=== PATIENT | male | born 1980 | race Caucasian/White ===

== ENCOUNTER 2018-06-05 10:30 | Emergency (ER) | payer BC ==
--- NOTE | 2018-06-05 10:53 | EDM.PDOC ---
ED HPI GENERAL MEDICAL PROBLEM - General Chief Complaint: ENT Problem Stated Complaint: MOUTH PAINN Time Seen by Provider: 06/05/18 10:48 Source of Information: Reports: Patient, RN, RN Notes Reviewed History Limitations: Reports: No Limitations - History of Present Illness INITIAL COMMENTS - FREE TEXT/NARRATIVE: Patient presents to the ED at [facility] complaining of left lower jaw pain , dental pain, and sneezing. He states his symptoms started a few days ago. He did call his dentist today, but he is not able to get in until Saturday. Onset: Gradual - Related Data Allergies Allergy/AdvReac Type Severity Reaction Status Date / Time No Known Allergies Allergy Verified 06/05/18 10:45 Home Meds: Home Meds Clindamycin HCl 300 mg PO TID 10 Days #30 capsule 06/05/18 [Rx] Past Medical History - Past Health History Medical/Surgical History: Denies Medical/Surgical History Social & Family History - Tobacco Use Smoking Status *Q: Unknown Ever Smoked ED ROS GENERAL - Review of Systems Review Of Systems: See Below Constitutional: Denies: Fever, Chills HEENT: Reports: Dental Pain, Rhinitis Respiratory: Denies: Shortness of Breath, Cough Cardiovascular: Denies: Chest Pain, Palpitations Skin: Reports: No Symptoms Neurological: Reports: No Symptoms ED EXAM, GENERAL - Physical Exam Exam: See Below Exam Limited By: No Limitations General Appearance: Alert, No Apparent Distress Throat/Mouth: Other (dental abscess around molar #12; no gingivits or periodontal disease; has a few missing teeth) Neck: Supple. No: Lymphadenopathy (L), Lymphadenopathy (R) Respiratory/Chest: No Respiratory Distress, Lungs Clear, Normal Breath Sounds Neurological: Alert, Oriented Skin Exam: Warm, Dry, Intact, Normal Color Course - Vital Signs Last Recorded V/S: Last Vital Signs Temp 37.1 C 06/05/18 10:35 Pulse 80 06/05/18 10:35 Resp 16 06/05/18 10:35 BP 115/88 06/05/18 10:35 Pulse Ox 100 06/05/18 10:35 Departure - Departure Time of Disposition: 10:53 Disposition: Home, Self-Care 01 Condition: Good Clinical Impression: Dental abscess - Discharge Information *PRESCRIPTION DRUG MONITORING PROGRAM REVIEWED*: Not Applicable *COPY OF PRESCRIPTION DRUG MONITORING REPORT IN PATIENT LEANNA: Not Applicable Prescriptions: Clindamycin HCl 300 mg PO TID 10 Days #30 capsule Instructions: Dental Abscess Additional Instructions: 1. Stay well hydrated and rest 2. Take antibiotics for full coarse, even if you are feeling better 3. Do warm salt water gargles several times a day 4. May use an antiseptic mouth wash 5. Alternate Tylenol/Advil as needed 6. Keep appointment with Dentist for this Saturday 7. Call with any questions or concerns - Problem List Review Problem List Initiated/Reviewed/Updated: Yes - Assessment/Plan Assessment:: Dental Abscess Molar #12 Plan: Finding discussed with patient. Will start abx therapy for dental abscess. SE discussed. Do full coarse even if you are feeling better. LOTS of water.
== END 2018-06-05 11:05 | disposition home or self-care (01) ==
LOC: VM.ED 10:30
DX: K04.7 Periapical abscess without sinus (principal)
CPT/HCPCS: 99282

== ENCOUNTER 2018-06-05 20:12 | Emergency (ER) | payer BC ==
[2018-06-05] MEDS ORDERED: methylPREDNISolone Sodium Succinate 125 MG/2 ML SDV IM ONE (20:33)
--- NOTE | 2018-06-05 20:33 | EDM.PDOC ---
ED HPI GENERAL MEDICAL PROBLEM - General Chief Complaint: ENT Problem Stated Complaint: dental pain/abscess swelling Time Seen by Provider: 06/05/18 20:22 Source of Information: Reports: Patient, Old Records, RN, RN Notes Reviewed History Limitations: Reports: No Limitations - History of Present Illness INITIAL COMMENTS - FREE TEXT/NARRATIVE: Patient presents to the ED again with worsening tooth pain. Patient was seen earlier today in this ER and diagnosed with dental abscess. He has started taking his abx as directed. He is, however, no taking enough OTC pain medication. Patient has an appointment with a dentist this Saturday, but states he is going to try and get in tomorrow. No other concerns. Onset: Gradual Left Lower Tooth/Teeth Pain Score (Numeric/FACES): 7 - Related Data Allergies Allergy/AdvReac Type Severity Reaction Status Date / Time No Known Allergies Allergy Verified 06/05/18 20:16 Home Meds: Home Meds Clindamycin HCl 300 mg PO TID 10 Days #30 capsule 06/05/18 [Rx] methylPREDNISolone [Medrol] 4 mg PO ASDIRECTED #1 dosepk 06/05/18 [Rx] Past Medical History - Past Health History Medical/Surgical History: Denies Medical/Surgical History Social & Family History - Tobacco Use Smoking Status *Q: Current Every Day Smoker Years of Tobacco use: 16 Packs/Tins Daily: 0.7 ED ROS ENT - Review of Systems Review Of Systems: See Below Constitutional: Denies: Fever, Chills, Weakness HEENT: Reports: Dental Pain Respiratory: Denies: Shortness of Breath, Cough Cardiovascular: Denies: Chest Pain, Palpitations Skin: Reports: No Symptoms Neurological: Reports: No Symptoms. Denies: Dizziness, Headache ED EXAM, ENT - Physical Exam Exam: See Below Exam Limited By: No Limitations General Appearance: Alert, No Apparent Distress Mouth/Throat: Dental Abcess, Dental Pain, Dental Tenderness, Gum Swelling. No: Dental Trauma Neck: Supple. No: Lymphadenopathy (L), Lymphadenopathy (R) Respiratory/Chest: No Respiratory Distress, Lungs Clear, Normal Breath Sounds Cardiovascular: Normal Peripheral Pulses, Regular Rate, Rhythm Neurological: Alert, Oriented Skin: Warm, Dry, Intact, Normal Color Course - Vital Signs Last Recorded V/S: Last Vital Signs Temp 36.6 C 06/05/18 20:17 Pulse 62 06/05/18 20:17 Resp 16 06/05/18 20:17 BP 129/84 06/05/18 20:17 Pulse Ox 98 06/05/18 20:17 Departure - Departure Time of Disposition: 20:38 Disposition: Home, Self-Care 01 Condition: Good Clinical Impression: Dental abscess, Pain, dental - Discharge Information *PRESCRIPTION DRUG MONITORING PROGRAM REVIEWED*: Not Applicable *COPY OF PRESCRIPTION DRUG MONITORING REPORT IN PATIENT LEANNA: Not Applicable Prescriptions: methylPREDNISolone [Medrol] 4 mg PO ASDIRECTED #1 dosepk Instructions: Dental Abscess Additional Instructions: 1. Stay well hydrated and rest 2. Alternate Tylenol/Advil as discussed 3. Continue with Clindamycin 4. Do warm salt water gargles to help with swelling and pain 5. Use Antiseptic mouth wash 6. Apply a heating pad to left side of face to help with pain and swelling 7. See your dentist as scheduled 8. Call us with any questions or concerns - Problem List Review Problem List Initiated/Reviewed/Updated: Yes - Assessment/Plan Assessment:: Dental abscess Dental pain Plan: Thoroughly discussed with patient how to alternate Tylenol/Advil for optimal pain relief. Discussed patient can alternate both medications every 2 hours for the short term until he is seen by his dentist. Patient verbalized understanding. Will give IM Solumedrol for swelling and start a Medrol Dos Bert tomorrow.
== END 2018-06-05 20:47 | disposition home or self-care (01) ==
LOC: VM.ED 20:12
DX: K04.7 Periapical abscess without sinus (principal); F17.210 Nicotine dependence, cigarettes, uncomplicated
CPT/HCPCS: 96372; 99282; J2930

== ENCOUNTER 2019-05-15 18:36 | Emergency (ER) | payer BC ==
--- NOTE | 2019-05-15 19:55 | EDM.PDOC ---
ED HPI GENERAL MEDICAL PROBLEM - General Chief Complaint: Skin Complaint Stated Complaint: FLUE LIKE SYMPTOMS Time Seen by Provider: 05/15/19 19:15 Source of Information: Reports: Patient History Limitations: Reports: No Limitations - History of Present Illness INITIAL COMMENTS - FREE TEXT/NARRATIVE: Patient reports flu like illness Saturday and Saturday. These have resolved but he went to [facility] with complaints of a bug bite to his left upper thigh. He was given augmentin at that time. He has sporadic red spots generally to his trunk. No itching, burning, no pustules. No fever, no chills. Onset: Gradual Duration: Getting Worse Location: Reports: Generalized - Related Data Allergies Allergy/AdvReac Type Severity Reaction Status Date / Time No Known Allergies Allergy Verified 06/05/18 20:16 Home Meds: Home Meds Clindamycin HCl 300 mg PO TID 10 Days #30 capsule 06/05/18 [Rx] methylPREDNISolone [Medrol] 4 mg PO ASDIRECTED #1 dosepk 06/05/18 [Rx] Past Medical History - Past Health History Medical/Surgical History: Denies Medical/Surgical History ED ROS GENERAL - Review of Systems Review Of Systems: See Below Constitutional: Reports: No Symptoms HEENT: Reports: No Symptoms Respiratory: Reports: No Symptoms Cardiovascular: Reports: No Symptoms Endocrine: Reports: No Symptoms GI/Abdominal: Reports: No Symptoms : Reports: No Symptoms Musculoskeletal: Reports: No Symptoms Skin: Reports: Rash Neurological: Reports: No Symptoms ED EXAM, SKIN/RASH Exam: See Below Exam Limited By: No Limitations General Appearance: Alert, WD/WN, No Apparent Distress Departure - Departure Time of Disposition: 20:01 Disposition: Home, Self-Care 01 Condition: Good Clinical Impression: Rash and nonspecific skin eruption, Pityriasis rosea-like skin eruption - Discharge Information *PRESCRIPTION DRUG MONITORING PROGRAM REVIEWED*: Not Applicable *COPY OF PRESCRIPTION DRUG MONITORING REPORT IN PATIENT LEANNA: Not Applicable Instructions: Rash Referrals: PCP,None [Primary Care Provider] - Forms: ED Department Discharge Additional Instructions: Plan 1. Continue to take the augmentin 2. Take claritin or zyrtec for the rash for the next few days 3. Follow up with [facility] provider that saw you on Saturday or Saturday if this persists 4. May take benadryl at night 25-50mg. May cause drowsiness. 5. Please call or return if you have any further questions or concerns - Problem List & Annotations (1) Rash and nonspecific skin eruption SNOMED Code(s): 004451821 Code(s): R21 - RASH AND OTHER NONSPECIFIC SKIN ERUPTION Status: Acute Priority: Low Current Visit: Yes - Problem List Review Problem List Initiated/Reviewed/Updated: Yes - Assessment/Plan Assessment:: Pityriasis rosea Plan: Plan 1. Continue to take the augmentin 2. Take claritin or zyrtec for the rash for the next few days 3. Follow up with [facility] provider that saw you on Saturday or Saturday if this persists 4. May take benadryl at night 25-50mg. May cause drowsiness. 5. Please call or return if you have any further questions or concerns
== END 2019-05-15 20:02 | disposition home or self-care (01) ==
LOC: VM.ED 18:36
DX: L42 Pityriasis rosea (principal)
CPT/HCPCS: 99282

== ENCOUNTER 2021-10-19 14:43 | Emergency (ER) | payer BC ==
[2021-10-19] MEDS ORDERED: Lidocaine 2% with EPINEPHrine 1:100,000 20 ML MDV INJECT ONE (15:15)
[2021-10-19] MEDS ORDERED: Bupivacaine 0.5% 30 ML SDV INJECT STA (15:15)
[2021-10-19] MEDS ORDERED: Lidocaine 2% with EPINEPHrine 1:100,000 20 ML MDV ONE (15:32)
[2021-10-19] MEDS ORDERED: Amoxicillin 500 MG Cap PO ONE (15:38)
--- NOTE | 2021-10-19 15:38 | EDM.PDOC ---
ED HPI GENERAL MEDICAL PROBLEM - General Chief Complaint: ENT Problem Stated Complaint: ABCESS TOOTH Time Seen by Provider: 10/19/21 15:25 Source of Information: Reports: Patient History Limitations: Reports: No Limitations - History of Present Illness INITIAL COMMENTS - FREE TEXT/NARRATIVE: Patient comes emergency department today with complaints of dental pain. This patient for the past 2 days has had increasing pain in the right lower anterior aspect of his jaw. He has concerns for dental abscess. He has made an appointment with the dentist on Saturday. He has been taking Tylenol ibuprofen without improvement. He denies any fever or chills. No difficulty breathing swallowing. No drooling. Right Lower Tooth/Teeth Pain Score (Numeric/FACES): 10 - Related Data Allergies Allergy/AdvReac Type Severity Reaction Status Date / Time No Known Allergies Allergy Verified 10/19/21 15:19 Home Meds: Home Meds Amoxicillin 500 mg PO BID #14 capsule 10/19/21 [Rx] Hydrocodone/Acetaminophen [HYDROcodone-Acetaminophen 5-325 MG] 1 each PO TID PRN #10 tab 10/20/21 [Rx] Past Medical History - Past Health History Medical/Surgical History: Denies Medical/Surgical History - Past Surgical History HEENT Surgical History: Reports: Adenoidectomy, Tonsillectomy Social & Family History - Tobacco Use Tobacco Use Status *Q: Unknown Ever Used Tobacco ED ROS ENT - Review of Systems Review Of Systems: Comprehensive ROS is negative, except as noted in HPI. ED EXAM, ENT - Physical Exam Exam: See Below Text/Narrative:: There is no overt facial asymmetry or swelling of the face specifically to the right lower area. Exam Limited By: No Limitations General Appearance: Alert, WD/WN, No Apparent Distress Ears: Normal External Exam, Normal TMs Nose: Normal Inspection Mouth/Throat: Gum Swelling (#27 erythema no abscess). No: Normal Inspection (On tooth #27 there is an artificial cap on there. There is a small amount of irritation just inferior to tooth #27. There is no sign of abscess. On the medial side of this area there is no erythema induration or swelling. Area under the tongue is soft. There is no trismus. There is no overt ab), Hoarse Voice Head: Atraumatic, Normocephalic Neck: Normal Inspection, Supple Respiratory/Chest: No Respiratory Distress, Lungs Clear, Chest Non-Tender Cardiovascular: Normal Peripheral Pulses, Regular Rate, Rhythm Neurological: Alert, Oriented Psychiatric: Normal Affect, Normal Mood Skin: Warm, Dry, Intact, Normal Color, No Rash Course - Vital Signs Last Recorded V/S: Last Vital Signs Temp 98.8 F 10/19/21 15:00 Pulse 63 10/19/21 15:00 Resp 16 10/19/21 15:00 BP 127/79 10/19/21 15:00 Pulse Ox 98 10/19/21 15:00 - Orders/Labs/Meds Meds: Medications Discontinued Medications Generic Name Dose Route Start Last Admin Trade Name Yasmin PRN Reason Stop Dose Admin Amoxicillin 500 mg 10/19/21 15:38 10/19/21 15:46 Amoxicillin 500 Mg Cap PO 10/19/21 15:39 500 mg ONETIME ONE Administration Bupivacaine HCl 30 ml 10/19/21 15:15 10/19/21 15:45 Bupivacaine 0.5% 30 Ml Sdv INJECT 10/19/21 15:16 30 ml NOW STA Administration Lidocaine/Epinephrine 20 ml 10/19/21 15:15 10/19/21 15:45 Lidocaine 2% With Epinephrine 1:100,000 20 Ml Mdv INJECT 10/19/21 15:16 20 ml ONETIME ONE Administration Lidocaine/Epinephrine Confirm 10/19/21 15:32 Lidocaine 2% With Epinephrine 1:100,000 20 Ml Mdv Administered 10/19/21 15:33 Dose 20 ml .ROUTE .[facility] - Re-Assessments/Exams Free Text/Narrative Re-Assessment/Exam: Patient was given amoxicillin 500 mg p.o. Risk and benefits of an inferior alveolar block were explained to the patient. His questions were answered. 2% lidocaine with epinephrine and 0.5% bupivacaine were mixed in a 50-50 fashion. After the anatomical landmarks of an inferior alveolar block for the right lower mandible were identified. With a 27-gauge needle I injected initially 2 mils of the above solution. This gave the initiation of good pain management. I then returned and instilled another 5 mils of the solution in the right inferior alveolar block region with good anesthesia and the patient had approximately 90% reduction of the pain. Hemostasis was obtained on its own. Patient has quite a bit of improvement with the alveolar block. We will discharge him home at this time with amoxicillin to follow-up with his dentist on Wednesday. He is comfortable with this plan his questions are answered. As of note approximately 20 hours later the patient did call back to the emergency department and stated that his pain is started to return. This is most likely due to the wearing off of the alveolar block. He does not want to come back in for another block. I did prescribe hydrocodone 5/325 1 tab p.o. every 6 hours as needed pain #10. I did caution him on the usage of Tylenol. Departure - Departure Time of Disposition: 15:54 Disposition: Home, Self-Care 01 Clinical Impression: Dental infection - Discharge Information Prescriptions: Amoxicillin 500 mg PO BID #14 capsule Hydrocodone/Acetaminophen [HYDROcodone-Acetaminophen 5-325 MG] 1 each PO TID PRN #10 tab PRN Reason: Pain Instructions: Dental Pain, [id number] Referrals: PCP,None [Primary Care Provider] - Forms: ED Department Discharge Additional Instructions: Tylenol and or Ibuprofen as needed for pain. Increase fluids. Amoxicillin 1 tab twice daily for the next 7 days. RX sent to [facility]. See dentist as planned next week. Return to the ED if new or worsening symptoms.
== END 2021-10-19 16:02 | disposition home or self-care (01) ==
LOC: VM.ED 14:43
DX: K04.7 Periapical abscess without sinus (principal)
CPT/HCPCS: 64400; 99282; 99282-25; A9270-GY; J3490

== ENCOUNTER 2021-10-21 13:08 | Emergency (ER) | payer BC ==
[2021-10-21] MEDS ORDERED: Take Home: Clindamycin HCl 150 MG Cap, 6 Cap Pack PO ONE (13:35)
[2021-10-21] MEDS ORDERED: Clindamycin HCl 150 MG Cap PO ONE (13:35)
[2021-10-21] MEDS ORDERED: Lidocaine 2% with EPINEPHrine 1:100,000 20 ML MDV INJECT ONE (13:35)
--- NOTE | 2021-10-21 13:49 | EDM.PDOC ---
ED HPI GENERAL MEDICAL PROBLEM - General Stated Complaint: NAUSEA/CHILLS Time Seen by Provider: 10/21/21 13:40 Source of Information: Reports: Patient History Limitations: Reports: No Limitations - History of Present Illness INITIAL COMMENTS - FREE TEXT/NARRATIVE: Patient comes emergency department today with concerns of sepsis and a dental abscess. This patient was seen by myself approximately 48 hours ago in the emergency department with dental pain. He did not have an abscess at that time. He was given a dental block which she had very good pain relief for about 12 to 16 hours but yesterday he had worsening pain and I did call in some hydrocodone for him. He has been taking his amoxicillin as needed and his pain is actually been very good today. Although he has developed some increasing swelling to his face some subjective fever and chills and he has concerns for worsening pathology. Has had no cough or congestion difficulty breathing no difficulty swallowing and eating and drinking appropriately. Right Face/Facial Pain Score (Numeric/FACES): 6 - Related Data Allergies Allergy/AdvReac Type Severity Reaction Status Date / Time No Known Allergies Allergy Verified 10/21/21 19:12 Home Meds: Home Meds Amoxicillin 500 mg PO BID #14 capsule 10/19/21 [Rx] Hydrocodone/Acetaminophen [HYDROcodone-Acetaminophen 5-325 MG] 1 each PO TID PRN #10 tab 10/20/21 [Rx] Clindamycin HCl 150 mg PO QID #28 capsule 10/21/21 [Rx] Past Medical History - Past Health History Medical/Surgical History: Denies Medical/Surgical History - Past Surgical History HEENT Surgical History: Reports: Adenoidectomy, Tonsillectomy ED ROS ENT - Review of Systems Review Of Systems: Comprehensive ROS is negative, except as noted in HPI. ED EXAM, ENT - Physical Exam Exam: See Below Exam Limited By: No Limitations General Appearance: Alert, WD/WN, No Apparent Distress Eye Exam: Bilateral Eye: Normal Inspection, PERRL Ears: Normal External Exam, Normal TMs Nose: Normal Inspection, Normal Mucousa, No Blood Mouth/Throat: Normal Lips, Dental Abcess (Right lower anterior jaw same tooth that he had when he came in.), Gum Swelling (Just along the site of the infected tooth.). No: Drooling, Oral Ulcers, Peritonsillar Mass, Pharyngeal Erythema, Tongue Swelling, Tonsillar Erythema, Tonsillar Exudates, Tonsillar Swelling, Uvular Edema Head: Facial Swelling (Right lower anterior jaw. ) Neck: Normal Inspection, Supple, Non-Tender, Full Range of Motion Respiratory/Chest: No Respiratory Distress, Lungs Clear, Chest Non-Tender Cardiovascular: Normal Peripheral Pulses, Regular Rate, Rhythm Extremities: Normal Inspection Neurological: Alert, Oriented, No Motor/Sensory Deficits Psychiatric: Normal Affect, Normal Mood Skin: Warm, Dry, Intact, Normal Color, No Rash Lymphatic: No Adenopathy Course - Vital Signs Last Recorded V/S: Last Vital Signs Temp 97.1 F 10/21/21 13:10 Pulse 79 10/21/21 13:10 Resp 16 10/21/21 13:10 BP 131/77 10/21/21 13:10 Pulse Ox 100 10/21/21 13:10 - Orders/Labs/Meds Meds: Medications Discontinued Medications Generic Name Dose Route Start Last Admin Trade Name Yasmin PRN Reason Stop Dose Admin Clindamycin HCl 150 mg 10/21/21 13:35 10/21/21 14:07 Clindamycin Hcl 150 Mg Cap PO 10/21/21 13:36 150 mg ONETIME ONE Administration Clindamycin HCl 1 packet 10/21/21 13:35 10/21/21 14:07 Take Home: Clindamycin Hcl 150 Mg Cap, 6 Cap Pack PO 10/21/21 13:36 1 packet ONETIME ONE Administration Lidocaine/Epinephrine 20 ml 10/21/21 13:35 10/21/21 13:40 Lidocaine 2% With Epinephrine 1:100,000 20 Ml Mdv INJECT 10/21/21 13:36 20 ml ONETIME ONE Administration - Re-Assessments/Exams Free Text/Narrative Re-Assessment/Exam: This patient clearly has developed a dental abscess. Risk and benefits of an incision and drainage with local lidocaine was explained the patient. Verbal consent was obtained. The use of 2% lidocaine with epinephrine at the site of the abscess I instilled approximately 1 mill and obtained good anesthesia. In the area of fluctuance I made a small stab crucifix type incision. I was able to expel a moderate amount of purulent discharge. The cavity was irrigated with sterile saline. Patient tolerated the procedure well. Hemostasis obtained spontaneously. Although the patient has only been on antibiotics for about 48 hours he has developed an abscess. Amoxicillin typically covers this quite well although he has subjective fever and chills which he has started we will start him on clindamycin 1 tablet 4 times a day for the next 7 days. He already has a dentist appointment set up on Saturday. Anything new or worse he is to recheck. Is comfortable with plan and his questions were answered. Departure - Departure Time of Disposition: 13:55 Disposition: Home, Self-Care 01 Clinical Impression: Dental abscess - Discharge Information Prescriptions: Clindamycin HCl 150 mg PO QID #28 capsule Instructions: Antibiotic Medicine, Adult, [id number], Dental Abscess, [id number] Referrals: PCP,None [Primary Care Provider] - Forms: ED Department Discharge Additional Instructions: Continue with the tylenol and or ibuprofen. You may also use the hydrocodone I gave you yesterday. Stop the Amoxicillin Start Clindamycin 1 capsule 4 times a day for the next 7 days. RX sent to the pharmacy. make sure and take OTC probiotic, ask the pharmacist to prevent diarrhea infection from this antibiotic. See your dentist on saturday as planned. Return to the ED if new or worsening symptoms.
== END 2021-10-21 14:05 | disposition home or self-care (01) ==
LOC: VM.ED 13:08
DX: K04.7 Periapical abscess without sinus (principal)
CPT/HCPCS: 41800; 99282; 99283-25; A9270-GY

== ENCOUNTER 2022-08-12 13:20 | Emergency (ER) | payer BC, OTHER | END 2022-08-12 14:28 | disposition home or self-care (01) | LOC: VM.ED 13:20 | DX: S92.421A Displaced fracture of distal phalanx of right great toe, initial encounter for closed fracture (principal); F17.210 Nicotine dependence, cigarettes, uncomplicated; W20.8XXA Other cause of strike by thrown, projected or falling object, initial encounter | CPT/HCPCS: 99283 ==